=== PATIENT | male | born 1970 | race American Indian/Alaskan Native ===

== ENCOUNTER 2023-09-26 20:04 | Emergency (ER) | payer BC ==
[2023-09-26 20:36] LABS: BASOPHILS ABSOLUTE AUTO 0.03 10^3/uL (0.00-0.50); BASOPHILS PERCENT AUTO 0.2 % (0-1); EOSINOPHILS ABSOLUTE AUTO 0.03 10^3/uL (0.00-1.50); EOSINOPHILS PERCENT AUTO 0.2 % (0-6); HEMATOCRIT 40.4 % (42.0-52.0); HEMOGLOBIN 14.1 g/dL (14.0-18.0); IMMATURE GRAN ABSOLUTE AUTO 0.11 10^3/uL (0.00-0.49); IMMATURE GRAN PERCENT AUTO 0.6 % (0.0-4.9); LYMPHOCYTES ABSOLUTE AUTO 1.14 10^3/uL (0.60-5.00); LYMPHOCYTES PERCENT AUTO 6.7 % (24-44); MEAN CORPUSCULAR HGB CONC 34.9 g/dL (32.0-36.0); MEAN CORPUSCULAR VOLUME 97.3 fL (83.0-97.0); MONOCYTES ABSOLUTE AUTO 1.51 10^3/uL (0.00-1.50); MONOCYTES PERCENT AUTO 8.8 % (0-10); NEUTROPHILS PERCENT AUTO 83.5 % (41-71); PLATELET COUNT,PLT 78 10^3/uL (150-400); RED BLOOD CELL COUNT 4.15 x10^6/uL (4.50-6.00); WHITE BLOOD CELL COUNT,WBC 17.1 10^3/uL (4.0-11.0)
[2023-09-26 20:37] LABS: APPEARANCE,URINE SLIGHTLY CLOUDY (CLEAR); COLOR,URINE AMBER (YELLOW); GLUCOSE,URINE 100 mg/dL (NEGATIVE); KETONES,URINE 15 mg/dL (NEGATIVE); LEUKOCYTE ESTERASE,URINE NEGATIVE (NEGATIVE); NITRITE,URINE NEGATIVE (NEGATIVE); OCCULT BLOOD,URINE LARGE (NEGATIVE); PROTEIN,URINE 30 mg/dL (NEGATIVE); UROBILINOGEN,URINE >=8.0 EU/dL (0.2-1.0)
[2023-09-26 20:38] LABS: BILIRUBIN,URINE LARGE (NEGATIVE)
[2023-09-26 20:50] LABS: ALBUMIN 2.4 g/dL (3.4-5.0); BILIRUBIN TOTAL 6.8 mg/dL (0.0-1.0); C-REACTIVE PROTEIN 17.13 mg/dL (<=0.50); CALCIUM 8.4 mg/dL (8.4-10.1); CREATININE 1.2 mg/dL (0.7-1.3); EST CRCL DRUG DOSING (CG) 74.35 mL/min; POTASSIUM,K 3.7 mEq/L (3.5-5.0); PROTEIN TOTAL,TP 7.8 g/dL (6.4-8.2)
[2023-09-26 20:55] LABS: BACTERIA,URINE FEW /HPF (NOT SEEN); EPITHELIAL CELLS,URINE FEW /HPF (NOT SEEN)
[2023-09-26 20:56] LABS: MUCUS,URINE MANY /HPF (NOT SEEN)
[2023-09-26] MEDS: Sodium Chloride 0.9% 1,000 ML IV SCH (21:05)
[2023-09-26] MEDS: Iopamidol 755 Mg/ML 100 ML Bottle IVPUSH ONE (21:06)
[2023-09-26] MEDS: Piperacillin/Tazobactam 4.5 GM in Sodium Chloride 0.9% 100 ML IV ONE (21:51)
[2023-09-26] MEDS ORDERED: Sodium Chloride 0.9% 1,000 ML IV SCH (23:00)
[2023-09-27] MEDS: HYDROmorphone 1 MG/ML Syringe IVPUSH PRN (00:55)
== END 2023-09-27 02:15 | disposition home or self-care (01) ==
LOC: CC.ED 20:04
DX: K35.32 Acute appendicitis with perforation, localized peritonitis, and gangrene, without abscess (principal); I10 Essential (primary) hypertension; Z79.899 Other long term (current) drug therapy
CPT/HCPCS: 36415; 74177; 80053; 81001; 83605; 83690; 85025; 86140; 87040; 96361; 96365; 96375; 96376; 99285; J1170; J2543; J3490; J7030; Q9967; 99284

== ENCOUNTER 2023-10-03 16:42 | Emergency (ER) | payer BC ==
[2023-10-03] MEDS ORDERED: Ondansetron 4 MG/2 ML SDV IVPUSH PRN (17:07)
[2023-10-03] MEDS: HYDROmorphone 1 MG/ML Syringe IVPUSH ONE (17:12)
[2023-10-03] MEDS: Sodium Chloride 0.9% 1,000 ML IV ONE (17:12)
[2023-10-03 17:17] LABS: BASOPHILS ABSOLUTE AUTO 0.02 10^3/uL (0.00-0.50); BASOPHILS PERCENT AUTO 0.2 % (0-1); EOSINOPHILS ABSOLUTE AUTO 0.12 10^3/uL (0.00-1.50); EOSINOPHILS PERCENT AUTO 1.1 % (0-6); HEMATOCRIT 36.9 % (42.0-52.0); HEMOGLOBIN 12.8 g/dL (14.0-18.0); IMMATURE GRAN ABSOLUTE AUTO 0.05 10^3/uL (0.00-0.49); IMMATURE GRAN PERCENT AUTO 0.5 % (0.0-4.9); LYMPHOCYTES PERCENT AUTO 11.9 % (24-44); MEAN CORPUSCULAR HEMOGLOBIN 34.3 pg (27.0-32.0); MEAN CORPUSCULAR HGB CONC 34.7 g/dL (32.0-36.0); MEAN CORPUSCULAR VOLUME 98.9 fL (83.0-97.0); MONOCYTES ABSOLUTE AUTO 0.76 10^3/uL (0.00-1.50); NEUTROPHILS ABSOLUTE AUTO 8.66 x10^3/uL (1.80-8.00); NEUTROPHILS PERCENT AUTO 79.3 % (41-71); PLATELET COUNT,PLT 144 10^3/uL (150-400); RED BLOOD CELL COUNT 3.73 x10^6/uL (4.50-6.00); WHITE BLOOD CELL COUNT,WBC 10.9 10^3/uL (4.0-11.0)
[2023-10-03 17:29] LABS: ALBUMIN 1.8 g/dL (3.4-5.0); BILIRUBIN TOTAL 2.3 mg/dL (0.0-1.0); CALCIUM 7.9 mg/dL (8.4-10.1); CREATININE 1.1 mg/dL (0.7-1.3); EST CRCL DRUG DOSING (CG) 81.11 mL/min; MAGNESIUM 1.7 mg/dL (1.8-2.4); POTASSIUM,K 3.9 mEq/L (3.5-5.0); PROTEIN TOTAL,TP 7.3 g/dL (6.4-8.2)
[2023-10-03] MEDS: Iopamidol 755 Mg/ML 100 ML Bottle IVPUSH ONE (17:51)
[2023-10-03] MEDS: oxyCODONE 5 MG Tab PO ONE (19:33)
== END 2023-10-03 19:40 | disposition home or self-care (01) ==
LOC: CC.ED 16:42
DX: R10.31 Right lower quadrant pain (principal); I10 Essential (primary) hypertension; Z86.16 Personal history of COVID-19
CPT/HCPCS: 36415; 74177; 80053; 83605; 83735; 85025; 87040; 96361; 96374; 99284-25; A9270-GY; J1170; J7030; Q9967